=== PATIENT | male | born 1985 | race Caucasian/White ===

== ENCOUNTER 2016-09-08 17:28 | Emergency (ER) | payer BC ==
[2016-09-08 17:47] VITALS: BP 135/78
[2016-09-08] MEDS ORDERED: PRED-220 PO (18:20)
[2016-09-08] MEDS ORDERED: TRIA15OI TP (18:20)
--- NOTE | 2016-09-08 18:20 | PHYS DOC ---
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 Patient believes it is from poison oak. Patient states the rash is pruritic. Review of Systems Review of Systems Constitutional: Denies fever or chills [] Eyes: Denies change in visual acuity, redness, or eye pain [] HENT: Denies nasal congestion or sore throat [] Respiratory: Denies cough or shortness of breath [] Cardiovascular: No additional information not addressed in HPI [] GI: Denies abdominal pain, nausea, vomiting, bloody stools or diarrhea [] : Denies dysuria or hematuria [] Musculoskeletal: Denies back pain or joint pain [] Integument: rash Neurologic: Denies headache, focal weakness or sensory changes [] Endocrine: Denies polyuria or polydipsia [] Allergies Allergies Allergies Coded Allergies Type Severity Reaction Last Updated Verified No Known Drug Allergies 07/14/13 No Physical Exam Physical Exam Constitutional: Well developed, well nourished, no acute distress, non-toxic appearance. [] HENT: Normocephalic, atraumatic, bilateral external ears normal, oropharynx moist, no oral exudates, nose normal. [] Eyes: PERRLA, EOMI, conjunctiva normal, no discharge. [] Skin: Small amount of scattered erythematous papular rash on patient's bilateral upper and lower extremities. Back: No tenderness, no CVA tenderness. [] Extremities: No tenderness, no cyanosis, no clubbing, ROM intact, no edema. [] Neurologic: Alert and oriented X 3, normal motor function, normal sensory function, no focal deficits noted. [] Psychologic: Affect normal, judgement normal, mood normal. [] Current Patient Data Vital Signs Vital Signs Date Time Temp Pulse Resp B/P (MAP) Pulse Ox O2 Delivery O2 Flow Rate FiO2 09/08/16 17:47 98.2 66 19 97 Room Air 98.2 EKG EKG [] Radiology/Procedures Radiology/Procedures [] Course & Med Decision Making Course & Med Decision Making Pertinent Labs and Imaging studies reviewed. (See chart for details) Patient is in the ED with contact dermatitis rash from poison oak. Discharged with tapered dose of prednisone and triamcinolone cream Benadryl and Zyrtec. Follow-up with primary care doctor in 2 weeks. David Disclaimer Karanon Disclaimer This electronic medical record was generated, in whole or in part, using a voice recognition dictation system. Departure Departure Impression: Primary Impression: Contact dermatitis Disposition: 01 HOME, SELF-CARE Condition: STABLE Referrals: NO PCP (PCP) Follow-up with your doctor in 2 weeks or the provided doctor MENDOZA CARROLL MD Follow-up in 2 weeks if symptoms continues Patient Instructions: Contact Dermatitis Additional Instructions: You were seen with contact dermatitis rash from possible poison oak. Take the prescribed medicines as ordered. Follow-up with your doctor in 2 weeks if symptoms continue. Scripts Prednisone (PREDNISONE) 10 Mg Tablet 10 MG PO UD for PREDNISONE TAPER, #39 TAB 0 Refills Take 3 tablets by mouth twice a day for 3 days, then take 2 tablets by mouth twice a day for 3 days, then take 1 tablet by mouth twice a day for 3 days, then take 1 tablet by mouth daily x 3 days, then stop. Prov: EVELIN BARDALES APRN 09/08/16 Triamcinolone Acetonide (TRIAMCINOLONE ACETONIDE 0.1% OINT) 15 Gm Oint...g. 1 CORA TP BID for WOUND CARE, #1 TUBE MIX WITH EUCERIN DIRECTED BY PHYSICIAN Prov: EVELIN BARDALES APRN 09/08/16 Problem Qualifiers Primary Impression: Contact dermatitis Contact dermatitis type: irritant Contact dermatitis trigger: non-food plants Qualified Codes: L24.7 - Irritant contact dermatitis due to plants, except food EVELIN BARDLAES APRN Sep 08, 2016 18:20
== END 2016-09-08 18:27 | disposition home or self-care (01) ==
LOC: ER 17:28
DX: L24.7 Irritant contact dermatitis due to plants, except food (principal)
CPT/HCPCS: 99283

== ENCOUNTER 2016-12-04 19:45 | Emergency (ER) | payer BC ==
[~2016-12-04] VITALS: Ht 175.3 cm; Wt 96.6 kg
[~2016-12-04 19:45] MED LIST: PRED-220 PO; TRIA15OI TP
[2016-12-04 20:12] VITALS: BP 127/72
[2016-12-04] MEDS ORDERED: DOXY100C2 PO (20:28)
--- NOTE | 2016-12-04 20:29 | PHYS DOC ---
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 Patient states that he notices on Friday and it has progressively become worse. He states that the redness has spread within the last 24 hours. He denies fever, chills or any nausea vomiting. He denies any drainage or discharge from the site. Patient states his tetanus immunization was approximately 2 years ago. Review of Systems Review of Systems Constitutional: Denies fever or chills [] Eyes: Denies change in visual acuity, redness, or eye pain [] HENT: Denies nasal congestion or sore throat [] Respiratory: Denies cough or shortness of breath [] Cardiovascular: No additional information not addressed in HPI [] GI: Denies abdominal pain, nausea, vomiting, bloody stools or diarrhea [] : Denies dysuria or hematuria [] Musculoskeletal: Denies back pain or joint pain [] Integument: Denies rash or skin lesions. Bite to the right posterior thigh Neurologic: Denies headache, focal weakness or sensory changes [] Endocrine: Denies polyuria or polydipsia [] Allergies Allergies Allergies Coded Allergies Type Severity Reaction Last Updated Verified No Known Drug Allergies 07/14/13 No Physical Exam Physical Exam Constitutional: Well developed, well nourished, no acute distress, non-toxic appearance. [] HENT: Normocephalic, atraumatic, bilateral external ears normal, oropharynx moist, no oral exudates, nose normal. [] Eyes: PERRLA, EOMI, conjunctiva normal, no discharge. [] Neck: Normal range of motion, no tenderness, supple, no stridor. [] Cardiovascular:Heart rate regular rhythm, Lungs & Thorax: No respiratory distress noted Skin: Warm, dry, no erythema, no rash. Patient with redness noted to the right posterior thigh that appears that he was bitten however the area is tender with no induration noted. Extremities: No tenderness, no cyanosis, no clubbing, ROM intact, no edema. [] Neurologic: Alert and oriented X 3, normal motor function, normal sensory function, no focal deficits noted. [] Psychologic: Affect normal, judgement normal, mood normal. [] EKG EKG [] Radiology/Procedures Radiology/Procedures [] Course & Med Decision Making Course & Med Decision Making Pertinent Labs and Imaging studies reviewed. (See chart for details) Patient will be discharged home in stable condition recommended doxycycline. Patient agrees with discharge and discharge instructions were regimens and follow-up recommendations. He is recommended to use warm moist packs to the area several times a day. Signs and symptoms to return back to emergency prior has been provided. Recommended following up with primary care physician in the next 3-5 days. All questions and concerns have been answered at the patient's bedside. [] Dragon Disclaimer Dragon Disclaimer This electronic medical record was generated, in whole or in part, using a voice recognition dictation system. Departure Departure Impression: Primary Impression: Cellulitis Disposition: 01 HOME, SELF-CARE Condition: STABLE Referrals: NO PCP (PCP) Patient Instructions: Cellulitis, Incp-ad-Asrh Additional Instructions: Activity as tolerated. Warm moist packs to the area several times a day. Tylenol or ibuprofen for pain and discomfort. Medications as prescribed. Follow-up to primary care physician in the next 3-5 days. Return back to emergency prior signs symptoms of become worse. Scripts Doxycycline Hyclate (DOXYCYCLINE HYCLATE) 100 Mg Capsule 1 CAP PO BID, #20 CAP Prov: NEIL HERNADEZ APRN 12/04/16 Problem Qualifiers Primary Impression: Cellulitis Site of cellulitis: extremity Site of cellulitis of extremity: lower extremity Laterality: right Qualified Codes: L03.115 - Cellulitis of right lower limb NEIL HERNADEZ APRN Dec 04, 2016 20:29
== END 2016-12-04 20:43 | disposition home or self-care (01) ==
LOC: ER 19:45
DX: L03.115 Cellulitis of right lower limb (principal)
CPT/HCPCS: 99283

== ENCOUNTER 2019-04-25 09:42 | Emergency (ER) | payer BC ==
[~2019-04-25] VITALS: Ht 175.3 cm; Wt 97.0 kg
[~2019-04-25 09:42] MED LIST changes: +DOXY100C2 PO
[2019-04-25 10:04] VITALS: BP 133/83
[2019-04-25] MEDS ORDERED: AMOX500C PO (10:39)
--- NOTE | 2019-04-25 10:39 | PHYS DOC ---
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 He denies any cough, no abdominal pain, no neck pain. Patient checked his temperature at home and it was 103, he took some ibuprofen before came in here. He denies any nausea vomiting. Patient denies any trouble breathing. She denies any medical problem, he is not on any medication chronically. Review of Systems Review of Systems All other ROS is negative unless otherwise noted in HPI Current Medications Current Medications Current Medications Medications (Trade) Dose Ordered Sig/Laci Start Time Stop Time Status Last Admin Dose Admin Ceftriaxone Sodium (Rocephin Im) 1 gm 1X ONCE 04/25/19 11:00 04/25/19 11:01 DC Allergies Allergies Allergies Coded Allergies Type Severity Reaction Last Updated Verified No Known Drug Allergies 07/14/13 No Physical Exam Physical Exam See above Constitutional: Well developed, well nourished, no acute distress, non-toxic appearance. [] HENT: Normocephalic, atraumatic, bilateral external ears normal, oropharynx is erythematous, no oral exudates, nose normal. [] Eyes: PERRLA, EOMI, conjunctiva normal, no discharge. [] Neck: Normal range of motion, no tenderness, supple, no stridor. [] Cardiovascular:Heart rate regular rhythm, no murmur [] Lungs & Thorax: Bilateral breath sounds clear to auscultation [] Abdomen: Bowel sounds normal, soft, no tenderness, no masses, no pulsatile masses. [] Skin: Warm, dry, no erythema, no rash. [] Back: No tenderness, no CVA tenderness. [] Extremities: No tenderness, no cyanosis, no clubbing, ROM intact, no edema. [] Neurologic: Alert and oriented X 3, normal motor function, normal sensory function, no focal deficits noted. [] Psychologic: Affect normal, judgement normal, mood normal. [] Current Patient Data Vital Signs Vital Signs Date Time Temp Pulse Resp B/P (MAP) Pulse Ox O2 Delivery O2 Flow Rate FiO2 04/25/19 10:04 98.7 73 20 133/83 (100) 98 Room Air 98.7 Lab Values Laboratory Tests Test 04/25/19 10:18 Influenza Type A Antigen Negative (NEGATIVE) Influenza Type B Antigen Negative (NEGATIVE) Group A Streptococcus Rapid Positive (NEGATIVE) EKG EKG [] Radiology/Procedures Radiology/Procedures [] Course & Med Decision Making Course & Med Decision Making Pertinent Labs and Imaging studies reviewed. (See chart for details) [] Dragon Disclaimer Dragon Disclaimer This electronic medical record was generated, in whole or in part, using a voice recognition dictation system. Departure Departure Impression: Primary Impression: Strep pharyngitis Disposition: HOME, SELF-CARE Condition: STABLE Referrals: NO PCP (PCP) follow up with your doctor on Friday for reevaluation. Patient Instructions: Strep Throat Additional Instructions: Thank you for visiting our Emergency Department. We appreciate you trusting us with your care. If any additional problems come up don't hesitate to return to visit us. Please follow up with your primary care provider so they can plan additional care if needed and know about the problem that you had. If symptoms worsen come back to the Emergency Department. Any concerning symptoms that start such as chest pain, shortness of air, weakness or numbness on one side of the body, running high fevers or any other concerning symptoms return to the ER. Scripts Amoxicillin (AMOXICILLIN) 500 Mg Capsule 500 MG PO TID for 10 Days, #30 CAP 0 Refills Prov: GREGORY LUZ DO 04/25/19 GREGORY LUZ DO Apr 25, 2019 10:39
[2019-04-25] MEDS ORDERED: cefTRIAXone IM 1 GM VIAL IM ONE (11:00)
[2019-04-25 11:05] LABS: INFLUENZA A PATIENT NEGATIVE (NEGATIVE); INFLUENZA B PATIENT NEGATIVE (NEGATIVE)
[2019-04-25] MEDS ORDERED: 0.9 % SOD CHL for STERILE FIELD 10 ML DISP.SYRIN. ONE (11:20)
== END 2019-04-25 11:26 | disposition home or self-care (01) ==
LOC: ER 09:42
DX: J02.0 Streptococcal pharyngitis (principal); B96.89 Other specified bacterial agents as the cause of diseases classified elsewhere; R50.9 Fever, unspecified; R51 Headache; Z98.890 Other specified postprocedural states
CPT/HCPCS: 87804; 87880; 96372; 99283; J0696